=== PATIENT | male | born 1970 | race Caucasian/White ===

== ENCOUNTER 2025-05-28 11:54 | Day surgery (SDC) | payer OTHER ==
[2025-05-27 13:37] VITALS: BMI 26.6
[2025-05-28] MEDS ORDERED: AFRIN NASAL MIST 15 ML BOT ONE (12:22)
[2025-05-28] MEDS ORDERED: PROPOFOL 40 ML ONE (12:55)
[2025-05-28] MEDS ORDERED: Bacitracin 1 PK ONE (13:52)
[2025-05-28] MEDS ORDERED: Lidocaine 1% w/Epinephrine 1:200K 30 ML VIAL ONE (13:53)
[2025-05-28] MEDS ORDERED: HYDROcodone/Acetaminophen 5/325 mg Tablet ONE (16:16)
== END 2025-05-28 16:50 | disposition home or self-care (01) ==
LOC: CSHSDC 11:54
PROVIDERS: ATTEND Specialist
PROC: 09BL8ZZ Excision of Nasal Turbinate, Via Natural or Artificial Opening Endoscopic (ICD-10-PCS; principal; 2025-05-28)
PROC: 0HB1XZZ Excision of Face Skin, External Approach (ICD-10-PCS; 2025-05-28)
DX: J34.3 Hypertrophy of nasal turbinates (principal); J34.89 Other specified disorders of nose and nasal sinuses; M95.0 Acquired deformity of nose; M54.81 Occipital neuralgia
CPT/HCPCS: 93005; 93010; J2704; J3010